=== PATIENT | female | born 2000 | race Caucasian/White ===

== ENCOUNTER 2024-09-06 21:06 | Emergency (ER) | payer OTHER, SELFPAY ==
[2024-09-06 21:10] VITALS: BP 143/84
[2024-09-06 22:48] LABS: HCG, Urine Qualitative Screen Negative
[2024-09-06 22:49] LABS: Urine Albumin 1+ (Neg - Trace); Urine Bilirubin Negative (Negative); Urine Character Clear (Clear); Urine Color Yellow; Urine Glucose Negative (Negative); Urine Ketone 1+ (Negative); Urine Leukocyte Negative (Negative); Urine Nitrite Negative (Negative); Urine Occult Blood Negative (Negative); Urine Urobilinogen Negative (Neg - 1+)
[2024-09-06 22:57] LABS: Amphetamines Negative (Negative); Barbiturates Negative (Negative); Benzodiazepines Negative (Negative); Buprenorphine Negative (Negative); Cocaine Negative (Negative)
[2024-09-06 22:58] LABS: Marijuana Positive (Negative); Methadone Negative (Negative); Methamphetamines Negative (Negative); Opiates Negative (Negative); Phencyclidine Negative (Negative); Tricyclic Antidepressants Positive (Negative)
[2024-09-06 23:03] LABS: Urine Bacteria Few (Negative); Urine Red Blood Cell 0-2 /HPF (0-2); Urine Squamous Cell >30 /LPF (Few); Urine White Cell 0-2 /HPF (0-5)
[2024-09-06 23:10] VITALS: BP 136/89
--- NOTE | 2024-09-06 23:26 | ED.GENMED ---
History of Present Illness
General
Chief Complaint: Crisis Evaluation
Source: patient
Exam Limitations: none
Time Seen by Provider: 09/06/24 23:05
Nursing documentation reviewed up to this point in time: agreed with
History of Present Illness
History of Present Illness:
23 yo female c/o suicidal ideation with multiple plans, sent here by mobile crisis. Had recent breakup.
Past History
Past History
ED Past Medical History: Psychiatric (OCD, PTSD, anxiety, depression)
ED Past Surgical History: Tonsilectomy and Other ([place] teeth)
Social History
Tobacco: Non-smoker
Alcohol: None
Drug: None
Personal: Single
Living: with family
Review of Systems
Review of Systems
Allergies reviewed?: Yes
All Other Systems: Not applicable
Constitutional: Reports no symptoms
EENT: Reports no symptoms
Respiratory: Reports no symptoms
Cardiac: Reports no symptoms
ABD/GI: Reports no symptoms
: Reports no symptoms
Musculoskeletal: Reports no symptoms
Skin: Reports no symptoms
Neurological: Reports no symptoms
Endocrine: Reports no symptoms
Hematologic/Lymphatic: Reports no symptoms
Psychiatric: Reports depression and suicidal
Phy Exam
Physical Exam
Physical Exam:
Physical Exam
General: no apparent distress, not acutely ill
Neck: supple. no meningeal signs. normal posterior pharynx
Heart: s1/s2 regular rate and rhythm, no murmur. equal radial
pulses.
HEENT: Pupils equal round reactive to light, EOMI
Lungs: no acute respiratory distress. clear bilaterally
Abdomen: normal bowel sounds. not tender. no CVAT
Neuro: alert and oriented. no focal neurological deficits cranial nerves II through XII intact
Skin: no rash
Psychiatric: well kept. interactive and cooperative
Extremities: no edema. no calf tenderness. negative homans. good distal pulses
Course
Orders/Labs/Results
Orders:
Orders
09/06/24 21:15
Crisis Consult Urgent
Reason for Consult: +SI WITH PLAN
09/06/24 22:30
Test Result ONCE
09/06/24 22:36
HCG, Urine Qualitative Screen Urgent
Date Specimen was Collected: 09/06/24
Time Specimen was Collected: 22:30
Urinalysis Reflex To Culture Urgent
Date Specimen was Collected: 09/06/24
Time Specimen was Collected: 22:30
Urine Drug Abuse Screen Urgent
Date Specimen was Collected: 09/06/24
Time Specimen was Collected: 22:30
Urine Microscopic Reflex Cult Urgent
Abnormal Lab Results
09/06/24
22:36
Urine Ketones 1+ A
(Negative)
Urine Bacteria (Reflex) Few A
(Negative)
Urine Albumin (Reflex) 1+ A
(Neg - Trace)
Ur Tricyclics Screen Positive H
(Negative)
U Marijuana (THC) Screen Positive H
(Negative)
Vital Signs
Initial and Last Documented VS:
Initial Vital Signs
Temp Pulse Resp BP Pulse Ox
98.8 F 114 16 143/84 98
09/06/24 21:10 09/06/24 21:10 09/06/24 21:10 09/06/24 21:10 09/06/24 21:10
Last Documented Vital Signs
Temp Pulse Resp BP Pulse Ox
98.8 F 95 17 136/89 96
09/06/24 21:10 09/06/24 23:10 09/06/24 23:10 09/06/24 23:10 09/06/24 23:10
MDM/Problems Addressed
Differential Diagnosis Includes:
Suicide attempt, suicidal ideation, depression
MDM/Problems Addressed:
23-year-old female with recent suicidal ideation. Excepted to [place] for further psychiatric care.
Chronic conditions affecting care: Psychiatric illness
Acute Exacerbation and/or Progression of Chronic Illness: Psychiatric illness
*Pulse Oximetry
Patient hypoxic: no
*Critical Care Note
Total Time (30-74mins, 75-104mins- exclusive of procedures): Not Applicable
Patient Management
Social determinants of health affecting care: Living situation and Strong social support
Escalation/DeEscalation of care consider admission/obs:
transfer to psychiatric facility indicated
ED Attending Note
-
Portions of this chart may have been created with voice recognition software.� Occasional wrong word or��sound alike� substitutions may have occurred due to the inherent limitations of voice recognition software.
Discharge Plan
Departure
Patient Disposition: Psych Facility
Date of Disposition: 09/06/24
Time of Disposition: 23:34
Patient Status:: Psych
Condition: Good
Discharge Problem:
Suicidal ideation
Prescriptions:
No Action
lamotrigine [Lamictal] 200 mg Tablet
200 mg PO HS
quetiapine [Seroquel] 300 mg Tablet
300 mg PO HS
venlafaxine [Effexor XR] 150 mg Capsule,Extended Release 24hr
200 mg PO DAILY
hydroxyzine pamoate [Vistaril] 100 mg Capsule
100 mg PO HS PRN (Reason: anxiety)
lorazepam [Ativan] 1 mg Tablet
1 mg PO DAILY PRN (Reason: anxiety)
Rx Instructions:
May take 1 to 2 mg for anxiety
Referrals:
Luis Michelle MD [Family Provider] -
Interventions
Interventions:
*Risk Screen - Suicide Last Done: 09/06/24 21:10
*General Assessment Last Done: 09/06/24 21:10
*Neglect/Abuse Screening Last Done: 09/06/24 21:10
ED- Fall Risk Assessment Last Done: 09/06/24 23:19
*ED COVID-19 Vaccine History Last Done: 09/06/24 23:19
ED-Psychological Assessment Last Done: 09/06/24 22:25
Discharge Date and Time
Print Language: SAMI
[2024-09-07] MEDS: ATIVAN 1 MG PO (00:57)
[2024-09-07] MEDS: SEROQUEL 300 MG PO (01:30)
[2024-09-07] MEDS: LAMICTAL 200 MG PO (02:14)
[2024-09-07 07:37] VITALS: BP 100/44
== END 2024-09-07 09:36 ==
LOC: EMR 21:06
PROVIDERS: EMERGENCY PHYSICIAN Emergency Medicine; FAMILY PHYSICIAN Family Medicine
DX: R45.851 Suicidal ideations (principal); F41.9 Anxiety disorder, unspecified; F32.A Depression, unspecified
CPT/HCPCS: 99285; 80306; 81003; 81015; 81025

== ENCOUNTER 2025-04-03 11:36 | Emergency (ER) | payer OTHER, SELFPAY ==
[2025-04-03 11:47] VITALS: BP 124/88
--- NOTE | 2025-04-03 12:36 | ED.GENMED ---
History of Present Illness
General
Chief Complaint: Musculo-Skeletal Complaint
Source: patient
Exam Limitations: none
Time Seen by Provider: 04/03/25 12:07
Nursing documentation reviewed up to this point in time: agreed with
History of Present Illness
History of Present Illness:
Patient is a 24-year-old female who presents to the emergency department for evaluation of right hand injury. Patient states that earlier today she was at a group counseling session when someone said to make to her that upset her and she proceeded
to punch an electrical box multiple times the right hand. She repeatedly denies any suicidal ideations or thoughts of harming herself. She denies any thoughts of harming anyone else. She states she just briefly became upset by the comment that
was made. She otherwise feels safe in her group setting.
Patient has pain in her right hand most significant in right fifth digit. She denies any numbness/tingling in right hand or fingers. No other injury sustained.
Past History
Past History
ED Past Medical History: Psychiatric (OCD, PTSD, anxiety, depression)
ED Past Surgical History: Tonsilectomy and Other ([place] teeth)
Social History
Tobacco: Non-smoker
Alcohol: None
Drug: None
Personal: Single
Living: with family
Review of Systems
Review of Systems
Allergies reviewed?: Yes
All Other Systems: ROS reviewed and negative except as documented in HPI and ROS
Phy Exam
Physical Exam
Physical Exam:
Vitals: Patient's vital signs are stable. Afebrile
General: Patient is well appearing, no acute distress
Skin: Warm and dry, no rashes or lesions
Head: Normocephalic, atraumatic
Throat: Protecting airway
Neck: Normal ROM, no cervical spine tenderness
Cardiac: Regular rate
Pulm: No apparent respiratory distress
Abdomen: Nondistended
Extremities: Swelling and tenderness of right hand at ulnar aspect, most notable around the fifth digit. No obvious deformity or evidence of tendon involvement. Normal sensation and capillary refill in right hand. 2+ palpable radial pulse.
Neuro: Grossly intact
Psychiatric: Normal affect.
Course
Orders/Labs/Results
Orders:
Orders
04/03/25 11:49
Hand, Right 3 View [CR Hand - Right Min 3 Views] Urgent
Comment:
Reason For Exam: right hand pain after punching metal power box
04/03/25 12:46
Splints/Slings/Crut- Treatment ONCE
Location: Right
Type of Splint: Ulnar Gutter
Ibuprofen [Motrin] 400 mg PO NOW STA
Vital Signs
Initial and Last Documented VS:
Initial Vital Signs
Temp Pulse Resp BP Pulse Ox
98.2 F 110 16 124/88 98
04/03/25 11:47 04/03/25 11:47 04/03/25 11:47 04/03/25 11:47 04/03/25 11:47
Last Documented Vital Signs
Temp Pulse Resp BP Pulse Ox
98.2 F 110 16 124/88 98
04/03/25 11:47 04/03/25 11:47 04/03/25 11:47 04/03/25 11:47 04/03/25 12:36
Procedures
Splinting/Sling Placement
Right Hand:
Procedure completed by: Freida Garcia RN
Pre-splint extermity exam: neurovascular intact
Type of splint: ulnar gutter
Splint material: fiberglass
Normal distal neurovascular exam?: Yes
MDM/Problems Addressed
Differential Diagnosis Includes:
Not limited to: Boxer fracture, carpal fracture, phalanx dislocation, contusion, etc.
MDM/Problems Addressed:
24-year-old female presenting with right hand pain/swelling after punching electrical box earlier today. No other associated injuries. No SI or HI. Vitals and physical exam as above.
Patient has swelling and tenderness of right hand at radial aspect most localized around MCP joint. Right hand is neurovascularly intact with normal sensation. Xray reveals boxers fracture.
Patient not suicidal, homicidal do not have concern for their safety.
Patient placed in ulnar gutter splint by RN and tolerated well. Will discharge with orthopedic follow up. Advised ice, elevation, NSAIDS/Tylenol for pain. Return precautions discussed. Patient comfortable with plan.
Chronic conditions affecting care:
N/A
Acute Exacerbation and/or Progression of Chronic Illness:
N/A
*Radiology
Radiology exam reviewed: preliminary read by ED provider (Boxer fracture of right fifth digit) and radiology read reviewed
*Pulse Oximetry
SaO2: 98
Oxygen Mode of Delivery: Room air
Patient hypoxic: no
*EKG
Interpreted by ED Provider?: NA
*Button Tufter Interpretation
Rate: Button Tufter- N/A
*Critical Care Note
Total Time (30-74mins, 75-104mins- exclusive of procedures): Not Applicable
ED Attending Note
-
Portions of this chart may have been created with voice recognition software.� Occasional wrong word or��sound alike� substitutions may have occurred due to the inherent limitations of voice recognition software.
Discharge Plan
Departure
Patient Disposition: Home (Routine Discharge)
Date of Disposition: 04/03/25
Time of Disposition: 13:05
Patient with high blood pressure during this ER visit?: No
Discharge Problem:
Boxer's fracture
Instructions: Hand fracture, Splint Care
Prescriptions:
No Action
lamotrigine [Lamictal] 200 mg Tablet
200 mg PO HS
quetiapine [Seroquel] 300 mg Tablet
300 mg PO HS
venlafaxine [Effexor XR] 150 mg Capsule,Extended Release 24hr
200 mg PO DAILY
hydroxyzine pamoate [Vistaril] 100 mg Capsule
100 mg PO HS PRN (Reason: anxiety)
lorazepam [Ativan] 1 mg Tablet
1 mg PO DAILY PRN (Reason: anxiety)
Rx Instructions:
May take 1 to 2 mg for anxiety
Referrals:
Luis Michelle MD [Family Provider, Family Practice]
Juan A Field MD [Active, Orthopedics]
Activity Restrictions/Additional Instructions:
RETURN TO THE EMERGENCY DEPARTMENT WITH ANY INTRACTABLE PAIN, NUMBNESS/TINGLING IN RIGHT HAND/FINGERS, THOUGHTS OF HARMING YOURSELF OR OTHERS WORSENING IN CURRENT SYMPTOMS, OR ANY OTHER CONCERNS
- As discussed� the x-ray of your hand showed a fracture of your fifth metacarpal. You were placed in a ulnar gutter splint. Please keep this on until you are seen by orthopedics. Continue to ice, elevate your right hand and take Tylenol/Motrin
as needed for pain.
- Please contact orthopedics tomorrow for further evaluation/management.
Monitor your symptoms closely and return to the emergency department with any acute worsening/new symptoms or any other concerns
Interventions
Interventions:
*Risk Screen - Suicide Last Done: 04/03/25 11:47
*Neglect/Abuse Screening Last Done: 04/03/25 11:47
*Nursing Disposition Last Done: 04/03/25 13:33
ED-Musculoskeletal Assessment Last Done: 04/03/25 12:30
Discharge Date and Time
Discharge Date/Time: 04/03/25 13:33
Print Language: CYMRO
[2025-04-03] MEDS: MOTRIN 400 MG PO (13:22)
== END 2025-04-03 13:33 | disposition home or self-care (01) ==
LOC: EMR 11:36
PROVIDERS: EMERGENCY PHYSICIAN Student in an Organized Health Care Education/Training Program; FAMILY PHYSICIAN Family Medicine
DX: S62.396A Other fracture of fifth metacarpal bone, right hand, initial encounter for closed fracture (principal); X83.8XXA Intentional self-harm by other specified means, initial encounter; Y92.89 Other specified places as the place of occurrence of the external cause; F42.9 Obsessive-compulsive disorder, unspecified; F41.9 Anxiety disorder, unspecified; F32.A Depression, unspecified; F43.10 Post-traumatic stress disorder, unspecified; G90.A Postural orthostatic tachycardia syndrome [POTS]; F60.3 Borderline personality disorder; Z91.048 Other nonmedicinal substance allergy status
CPT/HCPCS: 99283; 29125; 73130